=== PATIENT | female | born 1950 | race Caucasian/White ===

== ENCOUNTER → 2016-09-23 | Outpatient (CLI) | payer OTHER ==
--- NOTE | 2016-09-23 16:24 | DIAGNOSTIC IMAGING REPORT ---
PROCEDURE: US NEEDLE CORE BREAST BX-RIGHT INDICATION: Right axillary /upper breast mass. TECHNIQUE: Informed consent was obtained and the patient was informed of the usual risks and complications including infection, bleeding, and allergy. Supine position. COMPARISON: Comparison is made to mammogram right breast ultrasound on 09/08/2016. FINDINGS: Following sterile preparation and 1% lidocaine local anesthetic, ultrasound guidance was utilized to place a 13.5-gauge coaxial needle into the right axilla and directed into a 3.8 x 1.3 cm ovoid mass. Three core biopsy samples were obtained with a 14-gauge biopsy instrument. Samples were placed in formalin. The patient tolerated the procedure reasonably well and was discharged home in satisfactory condition with instructions to call for any untoward symptoms. IMPRESSION: 1. Successful ultrasound-guided biopsy of right axillary breast mass.
== END ==
LOC: US SRH 13:45
PROC: 0HBT3ZX Excision of Right Breast, Percutaneous Approach, Diagnostic (ICD-10-PCS; principal; 2016-09-23)
DX: R92.8 Other abnormal and inconclusive findings on diagnostic imaging of breast (principal)

== ENCOUNTER → 2016-10-21 | Outpatient (CLI) | payer OTHER ==
--- NOTE | 2016-10-21 16:41 | DIAGNOSTIC IMAGING REPORT ---
PROCEDURE: US COMPLETE PELVIC W/TRANSVAG INDICATION: PELVIC PAIN TECHNIQUE: Transabdominal and endovaginal montanez scale and color Doppler sonographic images of the female pelvis were obtained. COMPARISON: None. FINDINGS: TRANSABDOMINAL SCANS: The uterus is of normal size 6.4 x 4.6 x 2.0 cm Kidneys are normal. TRANSVAGINAL SCANS: The uterus is anteverted. Myometrium is normal. The endometrium measures 2 mm Right ovary is not seen at this time. The left ovary is normal measuring 1.7 x 1.6 x 1.3 cm. An area of dystrophic calcification is seen in the left ovary. IMPRESSION: 1. Normal uterus and ovaries and kidneys.
== END ==
LOC: US SRH 13:54
DX: R10.2 Pelvic and perineal pain (principal)

== ENCOUNTER 2016-10-22 07:52 | Outpatient (CLI) | payer OTHER ==
--- NOTE | 2016-10-22 10:08 | DIAGNOSTIC IMAGING REPORT ---
PROCEDURE: US ABDOMEN ULTRASOUND-COMPLETE INDICATION: Abdominal pain x 3 days, initial encounter TECHNIQUE: Begum scale and color Doppler sonographic images of the abdomen were obtained. COMPARISON: None. FINDINGS: The liver, spleen and pancreas are normal. There are tiny nonshadowing gallstones in the neck of the gallbladder with cholesterol crystals in the gallbladder lumen. Mild dilation of the CBD (8 mm). Aorta and IVC are patent. Normal hepatopetal flow. Normal kidneys. Right kidney measures 10.8 cm and left kidney 11 cm. IMPRESSION: 1. Multiple tiny gallstones in the neck of the gallbladder with mild dilation of the common bile duct. This may indicate distal obstruction. Correlate clinically and consider a hepatobiliary scan.
== END 2016-10-22 23:00 ==
LOC: US SRH 07:52
DX: R10.2 Pelvic and perineal pain (principal); R10.30 Lower abdominal pain, unspecified; R93.5 Abnormal findings on diagnostic imaging of other abdominal regions, including retroperitoneum

== ENCOUNTER 2016-11-16 12:10 | Outpatient (CLI) | payer OTHER | END 2016-11-16 23:00 | LOC: LAB SRH 12:10 | DX: R42 Dizziness and giddiness (principal); R19.7 Diarrhea, unspecified | CPT/HCPCS: 90074; 90100; 95059 ==

== ENCOUNTER 2016-11-17 10:59 | Outpatient (CLI) | payer OTHER | END 2016-11-17 23:00 | LOC: LAB SRH 10:59 | DX: R42 Dizziness and giddiness (principal); R19.7 Diarrhea, unspecified | CPT/HCPCS: 90112 ==